=== PATIENT | female | born 1980 | race Caucasian/White ===

== ENCOUNTER 2017-11-05 15:01 | Emergency (ER) | payer BC ==
[~2017-11-05] VITALS: Ht 162.6 cm; Wt 70.3 kg
[2017-11-05] MEDS ORDERED: PRENATAL VITAMINS (15:15)
[2017-11-05] MEDS ORDERED: AMOXICILLIN (15:15)
[2017-11-05] MEDS ORDERED: LIDOCAINE HCL 1% 20 ML VIAL ONE (15:38)
--- NOTE | 2017-11-05 15:57 | NUR ---
Patient discharged to home in stable conditon. Written and verbal after care instructions given to patient. Patient verbalizes understanding of instructions.
[2017-11-05] MEDS ORDERED: ACETAMINOPHEN/CODEINE 300-30 MG TABLET PO ONE (16:00)
[2017-11-05] MEDS ORDERED: ACETAMINOPHEN/CODEINE 300-30 MG TABLET ONE (16:06)
[2017-11-05] MEDS ORDERED: LIDOCAINE HCL 1% 20 ML VIAL IJ ONE (16:15)
== END 2017-11-05 16:07 | disposition home or self-care (01) ==
LOC: ER 15:04
DX: O26.891 Other specified pregnancy related conditions, first trimester (principal); N75.1 Abscess of Bartholin's gland; Z88.8 Allergy status to other drugs, medicaments and biological substances; Z3A.01 Less than 8 weeks gestation of pregnancy
CPT/HCPCS: 56420; 99284; A4217; A4663; J3490